=== PATIENT | male | born 1940 | race Caucasian/White ===

== ENCOUNTER 2017-08-04 19:55 | Emergency (ER) | payer OTHER ==
[~2017-08-04] VITALS: Ht 167.6 cm; Wt 90.4 kg
[~2017-08-04 19:55] MED LIST: DICL75 PO; INDO50CA PO; PERC5TAB12 PO; WARF4 PO
[2017-08-04 20:15] VITALS: BP 126/91; PULSE 80; RESP 20; TEMP 98.5; O2SAT 94
[2017-08-04] MEDS ORDERED: ALLO300T2 PO (20:30)
[2017-08-04] MEDS ORDERED: WARF-60 PO (20:30)
--- NOTE | 2017-08-04 21:11 | PD ---
HPI Chief Complaint: Back/ Neck Pain or Injury Time Seen by Provider: 21:00 Travel History International Travel<30 days: No Contact w/Intl Traveler<30days: No Traveled to known affect area: No History of Present Illness HPI The patient is a 77-year-old male that complains of low back pain for about a week. It is getting worse and he came in today because it is hard for him to ambulate with his pain. He was seen by his primary care physician earlier this week for this. He does not have any weakness or numbness or radiation of pain down his legs. The pain is primarily on the right lumbar area. He denies any bladder or bowel dysfunction. PFSH Past Medical History Arthritis: Yes (L FOOT) Blood Disorders: No Anxiety: No Depression: No Cancer: No Cardiovascular Problems: No High Cholesterol: Yes Diminished Hearing: No Diverticulitis: Yes Deep Vein Thrombosis: Yes (2010 RIGHT LEG) Endocrine: No Gastrointestinal Disorders: Yes (DIVERTICULOSIS) Gout: Yes Genitourinary: No Immune Disorder: No Implanted Vascular Access Dvce: Yes (VENA CAVA FILTER 03/28/11) Musculoskeletal: Yes Neurologic: No Psychiatric: No Reproductive: No Respiratory: No Tetanus Vaccination: > 5 Years Influenza Vaccination: Yes Past Surgical History Abdominal Surgery: Yes (CHOLECYSTECTOMY, REMOVAL OF 10" SMALL INTESTINES DUE TO DIVERTICULITIS) Cholecystectomy: Yes Eye Surgery: Yes (MARCELLO CATARACT) Genitourinary Surgery: Yes Tonsillectomy: Yes Other Surgery: Yes Social History Alcohol Use: Yes (ONCE OR TWICE A WEEK) Tobacco Use: Yes (1 TO 2 CIGARS A DAY) Substance Use: No Allergies-Medications (Allergen,Severity, Reaction): Coded Allergies: acetaminophen (Unverified Allergy, Intermediate, SERIOUS SHAKING, 06/03/17) hydrocodone (Unverified Allergy, Intermediate, SERIOUS SHAKING, 06/03/17) levofloxacin (Unverified Allergy, Intermediate, Blurred Vision- CIPRO OK. PER DR. DANIELLE, 06/03/17) Reported Meds & Prescriptions Reported Meds & Active Scripts Active Reported Warfarin 6 Mg Tab 6 Mg PO DAILY Allopurinol 300 Mg Tab 300 Mg PO DAILY Review of Systems Except as stated in HPI: all other systems reviewed are Neg Physical Exam Narrative GENERAL: The patient is alert, oriented 3 in moderate apparent distress with his back pain. His vital signs are normal except for blood pressure 126/91. SKIN: Focused skin assessment warm/dry. HEAD: Atraumatic. Normocephalic. EYES: Pupils equal and round. No scleral icterus. No injection or drainage. ENT: No nasal bleeding or discharge. Mucous membranes pink and moist. NECK: Trachea midline. No JVD. CARDIOVASCULAR: Regular rate and rhythm. No murmur appreciated. RESPIRATORY: No accessory muscle use. Clear to auscultation. Breath sounds equal bilaterally. GASTROINTESTINAL: Abdomen soft, non-tender, nondistended. Hepatic and splenic margins not palpable. MUSCULOSKELETAL: No obvious deformities. No clubbing. No cyanosis. No edema. I can completely reproduce the patient's pain by pressing on the musculature to the right of the lumbar spine at levels L 3, 4, 5. Straight leg raising is normal, deep tendon reflexes are +2 bilaterally on the patella and +1 bilaterally on the Achilles. Pinprick is normal. NEUROLOGICAL: Awake and alert. No obvious cranial nerve deficits. Motor grossly within normal limits. Normal speech. PSYCHIATRIC: Appropriate mood and affect; insight and judgment normal. Data Data Last Documented VS Vital Signs Date Time Temp Pulse Resp B/P (MAP) Pulse Ox O2 Delivery O2 Flow Rate FiO2 08/04/17 21:56 79 16 119/87 (98) 95 Room Air 08/04/17 20:[address] Lumb Spine W/O Contrast (08/04/17 21:06) Ketorolac Inj (Toradol Inj) (08/04/17 21:15) Orphenadrine Inj (Norflex Inj) (08/04/17 21:15) MDM Medical Decision Making Medical Screen Exam Complete: Yes Emergency Medical Condition: Yes Medical Record Reviewed: Yes Interpretation(s) The CT of the lumbar spine shows arthritic changes at L4-5 and L5-S1, most prominent at L5-S1 on the right. The radiologist makes the no that loss of fat planes on the right at L5-S1 could represent an occult disc protrusion. Differential Diagnosis Acute lumbar strain, HNP, lumbar radiculopathy, arthritis Narrative Course The patient appears to have arthritis of the lower lumbar spine. There is no fracture no definite disc protrusion and certainly no reason at this time for surgery. Plan: The patient will be given a prescription for Percocet, Flexeril. He is on Coumadin and cannot take nonsteroidals. Diagnosis Primary Impression: Acute lumbar myofascial strain Med/Other Pt SpecificInfo: Prescription(s) given Scripts Oxycodone-Acetaminophen (Percocet) 5-325 mg Tab 1 TAB PO Q6H Y for PAIN, #30 TAB 0 Refills Prov: Reji Mohamud MD 08/04/17 Cyclobenzaprine (Flexeril) 10 Mg Tab 10 MG PO TID for Muscle Spasm, #60 TAB 0 Refills Prov: Reji Mohamud MD 08/04/17 Disposition: 01 DISCHARGE HOME Condition: Stable Reji Mohamud MD Aug 04, 2017 21:11
[2017-08-04] MEDS ORDERED: ORPHENADRINE INJ 60 MG/2 ML AMP IM ONE (21:15)
[2017-08-04] MEDS ORDERED: KETOROLAC TROMETHAMINE 60 MG/2 ML (IM) VIAL IM ONE (21:15)
[2017-08-04 21:56] VITALS: BP 119/87; PULSE 79; RESP 16; O2SAT 95
--- NOTE | 2017-08-04 21:56 | RADRPT ---
EXAM DATE/TIME: 08/04/2017 21:25 [facility] COMPARISON: No previous studies available for comparison. INDICATIONS : Right lower back pain. RADIATION DOSE: 24.57 CTDIvol (mGy) MEDICAL HISTORY : Diverticulitis. Deep venous thrombosis. SURGICAL HISTORY : Cholecystectomy. Colon resection.[place] filter. ENCOUNTER: Initial ACUITY: 1 week PAIN SCALE: 10/10 LOCATION: Right lower back TECHNIQUE: Volumetric scanning of the lumbar spine was performed. Multiplanar reconstructions in the sagittal, coronal and oblique axial planes were performed. Using automated exposure control and adjustment of the mA and/or kV according to patient size, radiation dose was kept as low as reasonably achievable t o obtain optimal diagnostic quality images. DICOM format image data is available electronically for review and comparison. FINDINGS: VERTEBRAE: Normal vertebral body height. ALIGNMENT: No evidence of subluxation. T12-L1: The thecal sac has a normal diameter. No evidence of disc bulge or protrusion. The neural foramina are patent bilaterally. L1-L2: The thecal sac has a normal diameter. No evidence of disc bulge or protrusion. The neural foramina are patent bilaterally. Minimal anterior marginal spurring L2-L3: The thecal sac has a normal diameter. No evidence of disc bulge or protrusion. The neural foramina are patent bilaterally. Minimal anterior marginal spurring L3-L4: The thecal sac has a normal diameter. No evidence of disc bulge or protrusion. The neural foramina are patent bilaterally. Minimal anterior marginal fraying spurri L4-L5: The thecal sac is normal diameter with no evidence of disc bulge or protrusion and neural foramina ar e bilaterally patent. Mild facet arthritic change L5-S1: The thecal sac has a normal diameter. No evidence of disc bulge or protrusion. There is bilateral fa cet arthritic change most prominent on the right. There is loss of fat planes in the right neuroforam maura which could potentially be secondary to lateral disc although this is not well-defined on this st udy. CONCLUSION: Facet arthritic changes at L4-5 and L5-S1 most prominent at L5-S1 on the right. Loss of fat planes in the right L5-S1 neural foramin a nonspecific could represent an occult disc protrusion. Henry Cardona MD on August 04, 2017 at 21:49 Board Certified Radiologist. This report was verified electronically.
[2017-08-04] MEDS ORDERED: CYCL1TAB29 PO (22:20)
[2017-08-04] MEDS ORDERED: PERC5TAB12 PO (22:20)
== END 2017-08-04 22:56 | disposition home or self-care (01) ==
LOC: PHED 19:55
DX: S39.012A Strain of muscle, fascia and tendon of lower back, initial encounter (principal); X58.XXXA Exposure to other specified factors, initial encounter
CPT/HCPCS: 72131; 96372; 99285; J1885; J2360

== ENCOUNTER 2018-06-26 20:29 | Inpatient (IN) ==
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
[2018-06-26 21:01] LABS: Baso # (Auto) 0.1 th/mm3 (0.0-0.2); Baso % (Auto) 1.1 % (0.0-2.0); Eos # (Auto) 1.4 th/mm3 (0.0-0.4); Eos % (Auto) 11.1 % (0.0-4.0); Hematocrit 48.5 % (39.0-51.0); Hemoglobin 16.4 gm/dL (13.0-17.0); Lymph # (Auto) 2.9 th/mm3 (1.0-4.8); Lymph % (Auto) 23.1 % (9.0-44.0); Mean Corpuscular HGB Conc 33.9 % (32.0-36.0); Mean Corpuscular Hemoglobin 32.2 pg (27.0-34.0); Mean Corpuscular Volume 94.9 fL (80.0-100.0); Mean Platelet Volume 9.4 fL (7.0-11.0); Mono # (Auto) 0.9 th/mm3 (0.0-0.9); Mono % (Auto) 7.6 % (0.0-8.0); Neut # (Auto) 7.2 th/mm3 (1.8-7.7); Neut % (Auto) 57.1 % (16.0-70.0); Platelet Count 311 th/mm3 (150-450); Red Blood Count 5.11 mil/mm3 (4.50-5.90); Red Cell Distribution Width 13.5 % (11.6-17.2); White Blood Count 12.5 th/mm3 (4.0-11.0)
[2018-06-26 21:08] LABS: Potassium 3.8 meq/L (3.5-5.1)
[2018-06-26 21:11] LABS: Calcium 9.1 mg/dL (8.5-10.1)
[2018-06-26 21:12] LABS: Carbon Dioxide 25.4 meq/L (21.0-32.0)
[2018-06-26 21:13] LABS: INR 1.2 Ratio; Prothrombin Time 12.1 sec (9.8-11.6)
--- NOTE | 2018-06-26 21:20 | XR ---
EXAM DATE: 06/26/2018 9:11 PM EDT AGE/SEX: 78 years / Male INDICATIONS: Trauma to chest post fall today CLINICAL DATA: This is the patient's initial encounter. Patient reports that signs and symptoms have been present for 1 day and indicates a pain score of 0/10. MEDICAL/SURGICAL HISTORY: None. None. COMPARISON: [facility], CHEST SINGLE AP, 12/12/2010. . FINDINGS: A single AP view of the chest demonstrates the lungs to be symmetrically aerated without evidence of mass, infiltrate or effusion. Mild cardiomegaly is noted. Osseous structures are intact. CONCLUSION: 1. Mild cardiomegaly. 2. No focal infiltrate or pulmonary vascular congestion. Electronically signed by: Johnnie Arnold MD 06/26/2018 9:19 PM EDT
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
--- NOTE | 2018-06-26 22:36 | CT ---
EXAM DATE: 06/26/2018 10:25 PM EDT AGE/SEX: 78 years / Male INDICATIONS: Trauma. Lost consciousness and fell backwards. CLINICAL DATA: This is the patient's initial encounter. Patient reports that signs and symptoms have been present for 1 day and indicates a pain score of 4/10. MEDICAL/SURGICAL HISTORY: . Deep vein thrombosis. Diverticulitis. Hypertension. . Partial colon re section. Phacoemulsification of cataract of both eyes. Superior vena cava filter replacement. RADIATION DOSE: 54.84 CTDI (mGy) COMPARISON: No prior exams available for comparison. TECHNIQUE: CT of the head without contrast. Using automated exposure control and adjustment of the mA and/or kV according to patient size, radiation dose was kept as low as reasonably achievable to ob tain optimal diagnostic quality images. DICOM format image data is available electronically for revi ew and comparison. FINDINGS: Cerebrum: The ventricles are normal for age. No evidence of midline shift, mass lesion, hemorrhage or acute infarction. No extraaxial fluid collections are seen. Posterior Fossa: The cerebellum and brainstem are intact. The 4th ventricle is midline. The cerebe llopontine angle is unremarkable. Extracranial: The visualized portion of the orbits is intact. Skull: The calvaria is intact. No evidence of skull fracture. CONCLUSION: 1. Negative CT Head non contrast. . Electronically signed by: Johnnie Arnold MD 06/26/2018 10:34 PM EDT
[2018-06-26] MEDS ORDERED: Bisacodyl 10 MG Supp RECTAL PRN (23:00)
[2018-06-26] MEDS: Morphine Inj 4 MG/ML Vial IV.PUSH PRN (23:14)
[2018-06-26] MEDS: Sod Chloride 0.9% Inj 1,000 ML IV.CONT SCH (23:14)
[2018-06-26 23:36] LABS: Bilirubin,Urine Negative (Negative); Clarity,Urine Clear (Clear); Color,Urine Yellow (Yellw/Straw); Glucose,Urine (UA) Negative (Negative); Leukocyte Esterase,Urine Negative (Negative); Nitrite,Urine Negative (Negative); PH,Urine 5.5 (5.0-8.5); Specific Gravity,Urine Less/Equal 1.005 (1.002-1.035); Urobilinogen,Urine 0.2 mg/dL (Less than 2)
[2018-06-26 23:54] LABS: WBC,Urine 0-5 /hpf (0-5)
[2018-06-26 23:55] LABS: Amorphous Sediment,Urine Few /hpf; Hyaline Casts,Urine 0-3 /lpf (0-3); Mucus,Urine Few /lpf (Occasional); Squamous Epithelial Cell,Urine 0-5 /hpf (0-5)
[2018-06-27] MEDS: Morphine Inj 4 MG/ML Vial IV.PUSH PRN ×4 (03:02→13:36)
--- NOTE | 2018-06-27 06:12 | P.HPIM ---
History of Present Illness Service: [facility] hospitalists . Primary Care Physician: Toribio Farias MD Chief Complaint: Syncope, collapse, right ankle pain History of Present Illness: Mr. Rodriguez is a pleasant 78-year-old male with a history of recently diagnosed hypertension, right lower extremity DVT, diverticulitis with subsequent bowel perforation requiring hemicolectomy, and hyperlipidemia who presented to the emergency room in [place] on 06/26/2018 following a syncopal episode resulting in collapse with ankle pain. X-rays of the ankle showed distal fibula and tibia fractures. The patient was also placed on cardiac telemetry and atrial flutter was discovered in this patient without any history of cardiac arrhythmias. The patient was transferred to [facility] under the hospitalist service for further evaluation and management. The patient is seen in his hospital room. He reports having been started on antihypertensive medicine by an PSYCHOTHERAPIST COUNSELOR at Dr. Farias's office for elevated blood pressure. The medication is a combination of amlodipine and benazepril. The patient has taken this medication for the past 3 days. He reports his blood pressure was improving. Then, last night, he got up from bed to take his Coumadin. He was standing at a dresser with his feet underneath an opening under the dresser when he collapsed backwards hitting his head on the ground. The last thing he remembers is standing at the dresser trying to take his Coumadin. He denies any symptoms prior to the syncopal episode: Denies chest pain, shortness of breath, palpitations, blurry vision, unilateral weakness, or headache. He indicates that his right foot got caught under the opening of the dresser and remained in place while he fell backwards. He suffered from severe right ankle pain when he awakened from fall. He reports the pain has not been relieved with morphine 2 mg IV here at the hospital and is complaining of 10 out of 10 pain at the time of my visit. He denies any prior history of cardiac problems and states he has never been told he has a cardiac arrhythmia. 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 Inpatient Certification: I certify that the inpatient services were ordered in accordance with Medicare regulations governing the order. This includes certification that hospital inpatient services are reasonable and necessary and in the case of services not specified as inpatient-only under 42 CFR 419.22(n), that they are appropriately provided as inpatient services in accordance to with the 2-midnight benchmark under 43 CFR 412.3(e) Estimated Total Length of Stay (Days): 2 Plans for Post Hospital Care: Not yet determined Review of Systems All other systems reviewed negative except as stated in HPI [facility] - History History Provided By: Patient - Medical History Medical History: Medical History (Last Updated 06/27/18 @ 05:52 by JERRICA Myles) History of deep vein thrombosis (DVT) of lower extremity Onset Date: ~2009 History of diverticulitis History of hypertension Onset Date: ~2017 - Surgical History Surgical History: Surgical History (Last Updated 06/27/18 @ 05:53 by JERRICA Myles) History of ankle surgery History of partial surgical removal of colon Onset Date: ~2009 History of phacoemulsification of cataract of both eyes with intraocular lens implantation History of superior vena cava filter placement Onset Date: ~2009 - Family History Family History: Family History (Last Updated 06/27/18 @ 05:54 by JERRICA Myles) Father Myocardial infarction Other No family history of cerebrovascular accident (CVA) No family history of epilepsy - Tobacco History Second Hand Smoke Exposure: Yes Tobacco Use In Past 30 Days: Yes Smoking Status: Current every day smoker Tobacco Type: Cigars - Alcohol History How Often Do You Have a Drink Containing Alcohol: 2 to 3 times a week - Substance Use History Substance History: No History of Abuse - Travel History Recent Travel in the [place] Within the Last 8 Weeks: No Recent Travel Out of the Country Within the Last 8 Weeks: No - Immunization History Tetanus Immunization: <5 Years Hx Influenza Vaccine This Season: No Medications and Allergies Active Medications: Active Medications Al Hydroxide/Mg Hydroxide (Milk Of Magnesia Liq) 30 ml PO Q12H PRN PRN Reason: Mild Constipation Allopurinol (Zyloprim) 300 mg PO DAILY NANI Bisacodyl (Dulcolax Supp) 10 mg RECTAL DAILY PRN PRN Reason: SEVERE CONSITIPATION Sodium Chloride (Ns Inj) 1,000 mls @ 100 mls/hr IV.CONT .Q10H NANI Last Admin: 06/26/18 23:14 Dose: 100 mls/hr Lactulose (Lactulose Liq) 30 ml PO DAILY PRN PRN Reason: SEVERE CONSITIPATION Morphine Sulfate (Morphine Inj) 4 mg IV.PUSH Q4H PRN PRN Reason: PAIN 6-10 Last Admin: 06/27/18 05:44 Dose: 4 mg Non-Formulary Medication (Rosuvastatin [Rosuvastatin]) 40 mg PO DAILY [facility] Ondansetron HCl (Zofran Inj) 4 mg IV.PUSH Q6H PRN PRN Reason: NAUSEA OR VOMITING Senna/Docusate Sodium (Ekta-Colace) 1 tab PO BID [facility] Sennosides (Senokot) 17.2 mg PO Q12H PRN PRN Reason: Moderate Constipation Allergies Allergy/AdvReac Type Severity Reaction Status Date / Time acetaminophen Allergy Intermediate SERIOUS Verified 06/26/18 20:56 SHAKING hydrocodone Allergy Intermediate SERIOUS Verified 06/26/18 20:56 SHAKING levofloxacin Allergy Intermediate Blurred Verified 06/26/18 20:56 Vision- CIPRO OK. PER DR. DANIELLE MRI Precautions AdvReac Altered Uncoded 06/26/18 21:02 Sense of Taste Home Medications Medication Instructions Recorded Confirmed Type allopurinol 300 mg PO DAILY 06/26/18 06/26/18 History amlodipine-benazepril 1 cap PO DAILY 06/26/18 06/26/18 History rosuvastatin 40 mg PO DAILY 06/26/18 06/26/18 History warfarin 8 mg PO DAILY 06/26/18 06/26/18 History Exam Vital signs: Vital Signs 06/26/18 20:56 06/26/18 22:31 06/26/18 23:20 Temperature 98.3 F Pulse Rate 73 66 Respiratory Rate 20 17 16 Blood Pressure 164/94 H 151/73 H Pulse Oximetry 97 97 06/26/18 23:21 06/27/18 01:31 06/27/18 02:35 Temperature 98.7 F Pulse Rate 70 70 Respiratory Rate 16 16 Blood Pressure 133/73 Pulse Oximetry 95 06/27/18 04:00 Temperature 98.3 F Pulse Rate 77 Respiratory Rate 18 Blood Pressure 128/59 L Pulse Oximetry 97 Intake & Output 06/26/18 06/26/18 06/27/18 06:59 18:59 06:59 Output Total 350 / 350 Balance -350 / -350 Weight 90.718 kg Output: Urine 350 / 350 Other: Date of Last Bowel Movement 06/26/18 Narrative: GENERAL: This is a pleasant, elderly male patient, complaining of severe right ankle pain. SKIN: No rashes. Cool and dry. HEAD: Atraumatic. Normocephalic. EYES: No scleral icterus. No injection or drainage. ENT: Nose without bleeding, purulent drainage. NECK: Trachea midline. No JVD. No carotid bruits. CARDIOVASCULAR: Regular rate and rhythm without murmurs, gallops, or rubs. RESPIRATORY: Breath sounds with diminished air exchange, but equal bilaterally. No wheezes, rales, or rhonchi. GASTROINTESTINAL: Abdomen soft, non-tender, nondistended. No guarding. MUSCULOSKELETAL: Extremities without clubbing, cyanosis. No calf tenderness. Right toes are warm with intact movement, sensation, good capillary refill. NEUROLOGICAL: Awake and alert. Motor and sensory grossly within normal limits. Normal speech. . Results - Labs CBC & Chem 7: 06/26/18 20:52 06/26/18 20:52 Labs: Short CBC 06/26/18 Range/Units 20:52 WBC 12.5 H (4.0-11.0) th/mm3 Hgb 16.4 (13.0-17.0) gm/dL Hct 48.5 (39.0-51.0) % Plt Count 311 (150-450) th/mm3 BMP 06/26/18 20:52 Sodium 137 Potassium 3.8 Chloride 102 Carbon Dioxide 25.4 BUN 22 H Creatinine 2.20 H Calcium 9.1 Urine 06/26/18 Range/Units 23:34 Urine Color Yellow (Yellw/Straw) Urine Clarity Clear (Clear) Urine pH 5.5 (5.0-8.5) Ur Specific [place] Less/equal 1.005 (1.002-1.035) Urine Protein 30 H (Neg-Trace) mg/dL Urine Glucose (UA) Negative (Negative) mg/dL - Imaging Impressions Ankle X-Ray 06/26/18 20:43 CONCLUSION: Acute mildly displaced fractures involving the distal fibula and posterior malleolus of the distal tibia. Chest X-Ray 06/26/18 20:43 CONCLUSION: 1. Mild cardiomegaly. 2. No focal infiltrate or pulmonary vascular congestion. Head CT 06/26/18 20:44 CONCLUSION: 1. Negative CT Head non contrast. . Caprini VTE Risk Assessment Caprini VTE Risk Assessment: Moderate/High Risk (score >= 2) Caprini Risk Assessment Model: Point Value = 1 Point Value = 2 Point Value = 3 Point Value = 5 Age 41-60 Minor surgery BMI > 25 kg/m2 Swollen legs Varicose veins or History of unexplained or recurrent spontaneous Oral contraceptives or hormone replacement Sepsis (< 1 month) Serious lung disease, including pneumonia (< 1 month) Abnormal pulmonary function Acute myocardial infarction Congestive heart failure (< 1 month) History of inflammatory bowel disease Medical patient at bed rest Age 61-74 Arthroscopic surgery Major open surgery (> 45 min) Laparoscopic surgery (> 45 min) Malignancy Confined to bed (> 72 hours) Immobilizing plaster cast Central venous access Age >= 75 History of VTE Family history of VTE Factor V Leiden Prothrombin [id number] Lupus anticoagulant Anticardiolipin antibodies Elevated serum homocysteine Heparin-induced thrombocytopenia Other congenital or acquired thrombophilia Stroke (< 1 month) Elective arthroplasty Hip, pelvis, or leg fracture Acute spinal cord injury (< 1 month) Prophylaxis Regimen: Total Risk Factor Score Risk Level Prophylaxis Regimen 0-1 Low Early ambulation 2 Moderate Order ONE of the following: *Sequential Compression Device (SCD) *Heparin 5000 units SQ BID 3-4 Higher Order ONE of the following medications: *Heparin 5000 units SQ TID *Enoxaparin/Lovenox 40 mg SQ daily (WT < 150 kg, CrCl > 30 mL/min) *Enoxaparin/Lovenox 30 mg SQ daily (WT < 150 kg, CrCl > 10-29 mL/min) *Enoxaparin/Lovenox 30 mg SQ BID (WT < 150 kg, CrCl > 30 mL/min) AND/OR *Sequential Compression Device (SCD) 5 or more Highest Order ONE of the following medications: *Heparin 5000 units SQ TID (Preferred with Epidurals) *Enoxaparin/Lovenox 40 mg SQ daily (WT < 150 kg, CrCl > 30 mL/min) *Enoxaparin/Lovenox 30 mg SQ daily (WT < 150 kg, CrCl > 10-29 mL/min) *Enoxaparin/Lovenox 30 mg SQ BID (WT < 150 kg, CrCl > 30 mL/min) AND *Sequential Compression Device (SCD) Assessment and Plan - Plan Mr. Rodriguez is a pleasant 78-year-old male with a history of recently diagnosed hypertension, right lower extremity DVT, diverticulitis with subsequent bowel perforation requiring hemicolectomy, and hyperlipidemia who presented to the emergency room in [place] on 06/26/2018 following a syncopal episode resulting in collapse with ankle pain. X-rays of the ankle showed distal fibula and tibia fractures. The patient was also placed on cardiac telemetry and atrial flutter was discovered in this patient without any history of cardiac arrhythmias. The patient was transferred to [facility] under the hospitalist service for further evaluation and management. Distal fibula and tibia fractures, right ankle -Consult orthopedic surgeon-appreciate assistance -N.p.o. -We will increase morphine to 4 mg IV every 4 hours as needed for now Syncope -Suspect this was related to orthostatic hypotension as patient was just started on blood pressure medication earlier in the week and had been taking it for 3 days prior to syncope - patient also had a blood alcohol level of 78 which likely contributed -Hold blood pressure medication and monitor blood pressure readings -Unable to check orthostatics at this time given patient's severe right ankle pain -Check echocardiogram for cardiac structure and function New-onset atrial flutter -Continuous cardiac telemetry to monitor for further arrhythmia/monitor rate -Consult cardiology - appreciate assistance -anticoagulation to be resumed (takes for DVT) when okay with orthopedic surgeon Acute on chronic renal failure -BUN 22, creatinine 2.20, EGFR 29 -renal function worsened compared to prior labs -IV fluid hydration with normal saline at 100 cc/h -Repeat labs and follow trends and renal indices -Avoid nephrotoxins Regarding alcohol use -patient reports drinking 1 drink per day and up to 3 if he and his go out -Patient denies any history of alcohol withdrawal -Will add alcohol withdrawal assessment to orders without CIWA medications for now DVT prophylaxis -SVC filter -Continue anticoagulation when cleared by orthopedic surgery Discussed Condition With: Dr. Eaton, patient, and RN H&P: Quality - VTE Deep Vein Thrombosis/Pulmonary Embolism Present on Admission: No
[2018-06-27] MEDS: Senna/Docusate Sodium 8.6/50 MG Tablet PO SCH ×2 (09:31→22:32)
[2018-06-27] MEDS: Allopurinol 300 MG Tablet PO SCH (09:31)
[2018-06-27] MEDS: Sod Chloride 0.9% Inj 1,000 ML IV.CONT SCH ×2 (09:54→22:43)
[2018-06-27] MEDS ORDERED: Naloxone Inj 0.4 MG/ML Vial IV.PUSH PRN (09:57)
[2018-06-27 10:08] LABS: INR 1.2 Ratio; Prothrombin Time 12.1 sec (9.8-11.6)
--- NOTE | 2018-06-27 10:32 | P.CONCA ---
History of Present Illness Consult date: 06/27/18 Primary Care Provider: Toribio Farias MD Family Provider: Toribio Farias MD Chief Complaint: Syncope, collapse, right ankle pain History of Present Illness: Pleasant 78 year old male with a PMH of recently diagnosed HTN, hx of RLE DVT, diverticulitis who was recently started on amlodopine and benazepril for HTN who presented on 06/26 with a syncopal episode resulting in a fall and distal fibula and tibia fractures. The patient endorses ETOH use preceding his syncopal episode. He states feeling lightheaded and dizzy prior to falling. No CP/palpations preceding this episode. No family history of SCD. The patient was placed on cardiac telemetry and it showed atrial flutter without RVR. The patient is currently awaiting surgery. He is on Coumadin for DVT porphylaxis and tolerating it well without any issues. He currently denies any CP/SOB. No prior history of stroke, DM2, CHF, CAD, or atrial arrhythmia. Review of Systems All other systems reviewed negative except as stated in HPI [facility] - History History Provided By: Patient - Medical History Medical History: Medical History (Last Reviewed 06/29/18 @ 08:02 by Drea Horowitz) History of deep vein thrombosis (DVT) of lower extremity Onset Date: ~2009 History of diverticulitis History of hypertension Onset Date: ~2017 - Surgical History Surgical History: Surgical History (Last Reviewed 06/28/18 @ 13:34 by Erika Dobbins) History of ankle surgery History of partial surgical removal of colon Onset Date: ~2009 History of phacoemulsification of cataract of both eyes with intraocular lens implantation History of superior vena cava filter placement Onset Date: ~2009 - Family History Family History: Family History (Last Reviewed 06/29/18 @ 08:02 by Drea Horowitz) Father Myocardial infarction Other No family history of cerebrovascular accident (CVA) No family history of epilepsy - Tobacco History Second Hand Smoke Exposure: Yes Tobacco Use In Past 30 Days: Yes Smoking Status: Current every day smoker Tobacco Type: Cigars - Alcohol History How Often Do You Have a Drink Containing Alcohol: 2 to 3 times a week - Substance Use History Substance History: No History of Abuse - Travel History Recent Travel in the [facility] Within the Last 8 Weeks: No Recent Travel Out of the Country Within the Last 8 Weeks: No - Immunization History Tetanus Immunization: <5 Years Hx Influenza Vaccine This Season: No Medications and Allergies Active Medications: Active Medications Albuterol (Duoneb Neb (Prn)) 1 ampul NEB Q2HR NEB PRN PRN Reason: SHORTNESS OF BREATH/WHEEZING Allopurinol (Zyloprim) 300 mg PO DAILY [facility] Last Admin: 06/27/18 09:31 Dose: 300 mg Atorvastatin Calcium (Lipitor) 80 mg PO DAILY [facility] Last Admin: 06/27/18 09:31 Dose: 80 mg Bisacodyl (Dulcolax Supp) 10 mg RECTAL DAILY PRN PRN Reason: SEVERE CONSITIPATION Sodium Chloride (Ns Inj) 1,000 mls @ 100 mls/hr IV.CONT .Q10H [facility] Last Admin: 06/27/18 09:54 Dose: 100 mls/hr Lactulose (Lactulose Liq) 30 ml PO DAILY PRN PRN Reason: SEVERE CONSITIPATION Morphine Sulfate (Morphine Inj) 4 mg IV.PUSH Q4H PRN PRN Reason: PAIN 6-10 Last Admin: 06/27/18 09:31 Dose: 4 mg Naloxone HCl (Narcan Inj) 0.4 mg IV.PUSH UNSCH PRN PRN Reason: SEE LABEL COMMENTS Ondansetron HCl (Zofran Inj) 4 mg IV.PUSH Q6H PRN PRN Reason: NAUSEA OR VOMITING Senna/Docusate Sodium (Ekta-Colace) 1 tab PO BID [facility] Last Admin: 06/27/18 09:31 Dose: 1 tab Sennosides (Senokot) 17.2 mg PO Q12H PRN PRN Reason: Moderate Constipation Allergies Allergy/AdvReac Type Severity Reaction Status Date / Time levofloxacin Allergy Intermediate Blurred Verified 06/26/18 20:56 Vision- CIPRO OK. PER DR. DANIELLE MRI Precautions AdvReac Altered Uncoded 06/26/18 21:02 Sense of Taste Home Medications Medication Instructions Recorded Confirmed Type allopurinol 300 mg PO DAILY 06/26/18 06/26/18 History rosuvastatin 40 mg PO DAILY 06/26/18 06/26/18 History warfarin 8 mg PO DAILY 06/26/18 06/26/18 History Exam Vital signs: Vital Signs 06/26/18 20:56 06/26/18 22:31 06/26/18 23:20 Temperature 98.3 F Pulse Rate 73 66 Respiratory Rate 20 17 16 Blood Pressure 164/94 H 151/73 H Pulse Oximetry 97 97 06/26/18 23:21 06/27/18 01:31 06/27/18 02:35 Temperature 98.7 F Pulse Rate 70 70 Respiratory Rate 16 16 Blood Pressure 133/73 Pulse Oximetry 95 06/27/18 04:00 06/27/18 08:00 06/27/18 09:33 Temperature 98.3 F 97.9 F Pulse Rate 77 76 Respiratory Rate 18 18 18 Blood Pressure 128/59 L 134/55 L Pulse Oximetry 97 92 L Intake & Output 06/26/18 06/27/18 06/27/18 18:59 06:59 18:59 Intake Total 1000 / 1000 Output Total 650 / 650 Balance -650 / -650 1000 / 1000 Weight 90.718 kg Intake: IV 1000 / 1000 NS Inj 1,000 ML @ 100 mls/hr IV 1000 / 1000 .CONT .Q10H NANI Rx#:[id number] Output: Urine 650 / 650 Other: # Voids 1 Date of Last Bowel Movement 06/26/18 - Constitutional no acute distress - Routine HEENT Exam Head: Present: normocephalic Eye: Present: EOMI ENT: Present: mucous membranes moist - Routine Neck Exam Present: supple - Routine Chest/Breast/Axilla Exam Chest wall: Absent: tenderness - Routine Respiratory Exam Present: CTA bilaterally - Routine Cardiovascular Exam Present: S1, S2, irregular rhythm - Routine Abdominal Exam Present: soft, normoactive bowel sounds - Routine Extremities Exam Absent: edema - Routine Skin Exam Present: intact - Routine Neurological Exam Present: alert, oriented X3, CN II-XII intact - Routine Psychiatric Exam Present: normal affect Results 06/28/18 05:43 06/28/18 05:43 Coagulation 06/26/18 06/27/18 Range/Units 20:52 09:25 PT 12.1 H 12.1 H (9.8-11.6) sec CBC 06/26/18 Range/Units 20:52 WBC 12.5 H (4.0-11.0) th/mm3 RBC 5.11 (4.50-5.90) mil/mm3 Hgb 16.4 (13.0-17.0) gm/dL Hct 48.5 (39.0-51.0) % Plt Count 311 (150-450) th/mm3 Neut # (Auto) 7.2 (1.8-7.7) th/mm3 Lymph # (Auto) 2.9 (1.0-4.8) th/mm3 [place] # (Auto) 0.9 (0.0-0.9) th/mm3 Eos # (Auto) 1.4 H (0.0-0.4) th/mm3 Baso # (Auto) 0.1 (0.0-0.2) th/mm3 Comprehensive Metabolic Panel 06/26/18 Range/Units 20:52 Sodium 137 (136-145) meq/L Potassium 3.8 (3.5-5.1) meq/L Chloride 102 (98-107) meq/L Carbon Dioxide 25.4 (21.0-32.0) meq/L BUN 22 H (7-18) mg/dL Creatinine 2.20 H (0.60-1.30) mg/dL Calcium 9.1 (8.5-10.1) mg/dL Intake and Output 06/26/18 06/27/18 06/27/18 22:59 06:59 14:59 Intake Total 1000 / 1000 Output Total 650 / 650 Balance -650 / -650 1000 / 1000 Intake: IV 1000 / 1000 NS Inj 1,000 ML @ 100 mls/hr IV 1000 / 1000 .CONT .Q10H NANI Rx#:[id number] Output: Urine 650 / 650 Other: # Voids 1 Date of Last Bowel Movement 06/26/18 Weight 90.718 kg Assessment and Plan - Plan New onset Aflutter, no RVR Syncope-likely vasovagal. Continue to monitor. restart coumadin when appropriate from Orthopedics, would hold off on Flavio + cardioversion for now. Likely related to ETOH. TTE ordered.
[2018-06-27] MEDS ORDERED: Chlorhexidine Gluconate 2% 1 Pack (2 Cloths) TOPICAL ONE (10:45)
[2018-06-27] MEDS ORDERED: Sodium Chlor 0.9% Inj 500 ML IV.CONT ONE (10:45)
[2018-06-27] MEDS ORDERED: Metoprolol Tartrate 25 MG Tablet PO ONE (10:45)
--- NOTE | 2018-06-27 11:44 | P.PN ---
Subjective Interval history: F/U syncope. Patient has no complaints today. According to the , patient passed out for 5 minutes with upward rolling of eyeballs with extended upper extremities. No clonic activity Physical Exam Vital signs: Vital Signs 06/26/18 20:56 06/26/18 22:31 06/26/18 23:20 Temperature 98.3 F Pulse Rate 73 66 Respiratory Rate 20 17 16 Blood Pressure 164/94 H 151/73 H Pulse Oximetry 97 97 06/26/18 23:21 06/27/18 01:31 06/27/18 02:35 Temperature 98.7 F Pulse Rate 70 70 Respiratory Rate 16 16 Blood Pressure 133/73 Pulse Oximetry 95 06/27/18 04:00 06/27/18 08:00 06/27/18 09:33 Temperature 98.3 F 97.9 F Pulse Rate 77 76 Respiratory Rate 18 18 18 Blood Pressure 128/59 L 134/55 L Pulse Oximetry 97 92 L Intake & Output 06/26/18 06/27/18 06/27/18 18:59 06:59 18:59 Intake Total 1000 / 1000 Output Total 650 / 650 Balance -650 / -650 1000 / 1000 Weight 90.718 kg Intake: IV 1000 / 1000 NS Inj 1,000 ML @ 100 mls/hr IV 1000 / 1000 .CONT .Q10H [facility] Rx#:[id number] Output: Urine 650 / 650 Other: # Voids 1 Date of Last Bowel Movement 06/26/18 Narrative: GENERAL: This is a pleasant, elderly male patient, SKIN: No rashes. Cool and dry. CARDIOVASCULAR: Regular rate and rhythm without murmurs, gallops, or rubs. RESPIRATORY: Breath sounds with diminished air exchange, but equal bilaterally. No wheezes, rales, or rhonchi. GASTROINTESTINAL: Abdomen soft, non-tender, nondistended. No guarding. MUSCULOSKELETAL: Extremities without clubbing, cyanosis. No calf tenderness. Right lower extremity in a splint NEUROLOGICAL: Awake and alert. Motor and sensory grossly within normal limits. Normal speech. Results - Labs CBC & Chem 7: 06/27/18 13:22 06/26/18 20:52 Laboratory Results - last 24 hr 06/26/18 06/26/18 06/26/18 20:52 20:52 20:52 CBC w Diff Auto diff final WBC 12.5 H RBC 5.11 Hgb 16.4 Hct 48.5 MCV 94.9 MCH 32.2 MCHC 33.9 RDW 13.5 Plt Count 311 MPV 9.4 Neut % (Auto) 57.1 Lymph % (Auto) 23.1 [place] % (Auto) 7.6 Eos % (Auto) 11.1 H Baso % (Auto) 1.1 Neut # (Auto) 7.2 Lymph # (Auto) 2.9 [place] # (Auto) 0.9 Eos # (Auto) 1.4 H Baso # (Auto) 0.1 WBC Differential . Differential Comment . PT 12.1 H INR 1.2 Sodium 137 Potassium 3.8 Chloride 102 Carbon Dioxide 25.4 Anion Gap 10 BUN 22 H Creatinine 2.20 H Estimated GFR 29 L Random Glucose 128 H Calcium 9.1 Urine Color Urine Clarity Urine pH Ur Specific [place] Urine Protein Urine Glucose (UA) Urine Ketones Urine Occult Blood Urine Nitrate Urine Bilirubin Urine Urobilinogen Ur Leukocyte Esterase Urine WBC Ur Squamous Epith Cells Amorphous Sediment Hyaline Casts Urine Mucus Micro UA Comment Ur Microscopic Review Urine Culture Comments Serum Alcohol 06/26/18 06/26/18 06/27/18 20:52 23:34 09:25 CBC w Diff WBC RBC Hgb Hct MCV MCH MCHC RDW Plt Count MPV Neut % (Auto) Lymph % (Auto) [place] % (Auto) Eos % (Auto) Baso % (Auto) Neut # (Auto) Lymph # (Auto) [place] # (Auto) Eos # (Auto) Baso # (Auto) WBC Differential Differential Comment PT 12.1 H INR 1.2 Sodium Potassium Chloride Carbon Dioxide Anion Gap BUN Creatinine Estimated GFR Random Glucose Calcium Urine Color Yellow Urine Clarity Clear Urine pH 5.5 Ur Specific [place] Less/equal 1.005 Urine Protein 30 H Urine Glucose (UA) Negative Urine Ketones Negative Urine Occult Blood Small H Urine Nitrate Negative Urine Bilirubin Negative Urine Urobilinogen 0.2 Ur Leukocyte Esterase Negative Urine WBC 0-5 Ur Squamous Epith Cells 0-5 Amorphous Sediment Few H Hyaline Casts 0-3 Urine Mucus Few H Micro UA Comment Culture not ind Ur Microscopic Review Microscopic reviewed Urine Culture Comments Culture not ind Serum Alcohol 78 H - Imaging Impressions Ankle X-Ray 06/26/18 20:43 CONCLUSION: Acute mildly displaced fractures involving the distal fibula and posterior malleolus of the distal tibia. Chest X-Ray 06/26/18 20:43 CONCLUSION: 1. Mild cardiomegaly. 2. No focal infiltrate or pulmonary vascular congestion. Head CT 06/26/18 20:44 CONCLUSION: 1. Negative CT Head non contrast. . Assessment and Plan - Plan Mr. Rodriguez is a pleasant 78-year-old male with a history of recently diagnosed hypertension, right lower extremity DVT, diverticulitis with subsequent bowel perforation requiring hemicolectomy, and hyperlipidemia who presented to the emergency room in [place] on 06/26/2018 following a syncopal episode resulting in collapse with ankle pain. X-rays of the ankle showed distal fibula and tibia fractures. The patient was also placed on cardiac telemetry and atrial flutter was discovered in this patient without any history of cardiac arrhythmias. The patient was transferred to [facility] under the hospitalist service for further evaluation and management. Distal fibula and tibia fractures, right ankle -Consult orthopedic surgeon-appreciate assistance -N.p.o. -Continue morphine 4 mg IV every 4 hours as needed for now Syncope -Suspect this was related to orthostatic hypotension as patient was just started on blood pressure medication earlier in the week and had been taking it for 3 days prior to syncope - patient also had a blood alcohol level of 78 which likely contributed -Hold blood pressure medication and monitor blood pressure readings -Unable to check orthostatics at this time given patient's severe right ankle pain -Check echocardiogram for cardiac structure and function -Neurochecks and seizure precautions. Obtain EEG -Currently nonfocal New-onset atrial flutter -Continuous cardiac telemetry to monitor for further arrhythmia/monitor rate -Consult cardiology - appreciate assistance -anticoagulation to be resumed (takes for DVT) when okay with orthopedic surgeon Acute on chronic renal failure stage III -BUN 22, creatinine 2.20, EGFR 29 -renal function worsened compared to prior labs -IV fluid hydration with normal saline at 100 cc/h -Repeat labs and follow trends and renal indices -Avoid nephrotoxins Regarding alcohol use -patient reports drinking 1 drink per day and up to 3 if he and his go out -Patient denies any history of alcohol withdrawal -Will add alcohol withdrawal assessment to orders without CIWA medications for now DVT prophylaxis -SVC filter -Continue anticoagulation when cleared by orthopedic surgery Discharge Planning: Rehab vs [facility]
--- NOTE | 2018-06-27 12:16 | ECHRPT ---
Indication: CARDIOMYOPATHY CONCLUSIONS The left ventricular systolic function is normal with an estimated ejection fraction in the range of 60-65%. Normal left ventricular size. Wall thickness is measured at the upper limits of normal. No regional wall motion abnormalities are present. Trace mitral valve regurgitation. Aortic valve sclerosis is present. There is trace tricuspid valve regurgitation. The estimated pulmonary arterial pressure is 35 mmHg. BP: / HR: Rhythm: Sinus MEASUREMENTS (Male / Female) Normal Values Technical Quality:Poor 2D ECHO LV Diastolic Diameter PLAX 3.5 cm 4.2 - 5.9 / 3.9 - 5.3 cm LV Systolic Diameter PLAX 2.6 cm IVS Diastolic Thickness 1.2 cm 0.6 - 1.0 / 0.6 - 0.9 cm LVPW Diastolic Thickness 1.2 cm 0.6 - 1.0 / 0.6 - 0.9 cm LV Relative Wall Thickness 0.7 RV Internal Dim ED PLAX 2.8 cm LVOT Diameter 1.7 cm LA Systolic Diameter LX 3.4 cm 3.0 - 4.0 / 2.7 - 3.8 cm LV Ejection Fraction MOD 4C 60.5 % LV Ejection Fraction 4C AL 64.0 % M-MODE Aortic Root Diameter MM 2.5 cm LA Systolic Diameter MM 3.7 cm LA Ao Ratio MM 1.5 AV Cusp Separation MM 1.9 cm DOPPLER AV Peak Velocity 160.0 cm/s AV Peak Gradient 10.2 mmHg LVOT Peak Velocity 120.0 cm/s LVOT Peak Gradient 5.8 mmHg AV Area Cont Eq pk 1.7 cm MV Area PHT 5.0 cm Mitral E Point Velocity 134.0 cm/s Mitral A Point Velocity 49.9 cm/s Mitral E to A Ratio 2.7 LV E' Lateral Velocity 8.7 cm/s Mitral E to LV E' Lateral Ratio 15.4 TR Peak Velocity 250.0 cm/s TR Peak Gradient 25.0 mmHg Right Atrial Pressure 10.0 mmHg Pulmonary Artery Systolic Pressu 35.0 mmHg Right Ventricular Systolic Press 35.0 mmHg PV Peak Velocity 111.0 cm/s PV Peak Gradient 4.9 mmHg FINDINGS LEFT VENTRICLE The left ventricular systolic function is normal with an estimated ejection fraction in the range of 60-65%. Normal left ventricular size. Wall thickness is measured at the upper limits of normal. No regional wall motion abnormalities are present. RIGHT VENTRICLE Normal right ventricular size and systolic function. LEFT ATRIUM The left atrial size is normal. RIGHT ATRIUM The right atrial size is normal. ATRIAL SEPTUM Normal atrial septal thickness without atrial level shunting by limited color doppler interrogation. AORTA The aortic root and proximal ascending aorta are normal in size on limited imaging. MITRAL VALVE Structurally normal mitral valve. Trace mitral valve regurgitation. AORTIC VALVE Trileaflet aortic valve. Aortic valve sclerosis is present. TRICUSPID VALVE Structurally normal tricuspid valve. There is trace tricuspid valve regurgitation. The estimated pulmonary arterial pressure is 35 mmHg. PULMONARY VALVE No pulmonary valve regurgitation or stenosis. VESSELS The inferior vena cava is normal in size. PERICARDIUM No pericardial effusion. Javier Kimbrough MD (Electronically Signed) Final Date:27 June 2018 12:15
[2018-06-27 13:40] LABS: Baso # (Auto) 0.1 th/mm3 (0.0-0.2); Baso % (Auto) 0.7 % (0.0-2.0); Eos # (Auto) 1.3 th/mm3 (0.0-0.4); Eos % (Auto) 12.7 % (0.0-4.0); Hematocrit 42.8 % (39.0-51.0); Hemoglobin 14.8 gm/dL (13.0-17.0); Lymph # (Auto) 1.6 th/mm3 (1.0-4.8); Mean Corpuscular HGB Conc 34.6 % (32.0-36.0); Mean Corpuscular Hemoglobin 32.7 pg (27.0-34.0); Mean Corpuscular Volume 94.7 fL (80.0-100.0); Mean Platelet Volume 9.2 fL (7.0-11.0); Mono # (Auto) 0.9 th/mm3 (0.0-0.9); Mono % (Auto) 8.9 % (0.0-8.0); Neut # (Auto) 6.2 th/mm3 (1.8-7.7); Neut % (Auto) 61.7 % (16.0-70.0); Platelet Count 257 th/mm3 (150-450); Red Blood Count 4.52 mil/mm3 (4.50-5.90); Red Cell Distribution Width 14.3 % (11.6-17.2); White Blood Count 10.1 th/mm3 (4.0-11.0)
[2018-06-27 14:17] LABS: Alanine Aminotransferase 30 U/L (12-78); Albumin 3.5 g/dL (3.4-5.0); Anion Gap 7 meq/L (5-15); Aspartate Aminotransferase 31 U/L (15-37); Blood Urea Nitrogen 19 mg/dL (7-18); Calcium 8.4 mg/dL (8.5-10.1); Carbon Dioxide 24.8 meq/L (21.0-32.0); Chloride 110 meq/L (98-107); Glomerular Filtration Rate 42 mL/min (>89); Glucose,Random 85 mg/dL (74-106); Potassium 4.1 meq/L (3.5-5.1); Sodium 142 meq/L (136-145)
[2018-06-27 14:20] LABS: Alkaline Phosphatase 68 U/L (45-117); Total Protein 6.8 g/dL (6.4-8.2)
[2018-06-27 14:22] LABS: Creatine Kinase 83 U/L (39-308)
--- NOTE | 2018-06-27 15:05 | P.CONOP ---
[facility] Orthopedics Consult Note - [facility] Consult date: 06/27/18 Chief complaint: syncope, new onset atrial flutter, fx/disloc Right Narrative: Mr. Rodriguez is a pleasant 78-year-old male with a history of recently diagnosed hypertension, right lower extremity DVT, diverticulitis with subsequent bowel perforation requiring hemicolectomy, and hyperlipidemia who presented to the emergency room in [place] on 06/26/2018 following a syncopal episode resulting in collapse with ankle pain. X-rays of the ankle showed distal fibula and tibia fractures. The emergency room physician relates to me that he noticed deformity about the ankle and he went to lift the ankle and the ankle reduced back into position. He therefore splinted the ankle and took an x-ray in the splint. He did not take an x-ray prior to this. The patient was also placed on cardiac telemetry and atrial flutter was discovered in this patient without any history of cardiac arrhythmias. The patient was transferred to [facility] under the hospitalist service for further evaluation and management. The patient has been seen by hospital admitting clerk and has been cleared to move forward with surgical management. As far as the ankle is concerned he does describe some mild numbness about the toes. He describes some minor pain about the elbows but says that he feels like these are only contusions from the fall. He denies having problems with the ankle in the past. Ambulation in the ankle is very painful. He does regularly take Coumadin for history of DVT. However he has been off her Coumadin for a couple days. Review of Systems A 12 point review of systems was reviewed and is negative unless as specified in the history of present illness. [facility] - History History Provided By: Patient - Medical History Medical History: Medical History (Last Reviewed 06/27/18 @ 15:02 by Conrad Rios MD) History of deep vein thrombosis (DVT) of lower extremity Onset Date: ~2009 History of diverticulitis History of hypertension Onset Date: ~2017 - Surgical History Surgical History: Surgical History (Last Reviewed 06/27/18 @ 15:02 by Conrad Rios MD) History of ankle surgery History of partial surgical removal of colon Onset Date: ~2009 History of phacoemulsification of cataract of both eyes with intraocular lens implantation History of superior vena cava filter placement Onset Date: ~2009 - Family History Family History: Family History (Last Reviewed 06/27/18 @ 15:02 by Conrad Rios MD) Father Myocardial infarction Other No family history of cerebrovascular accident (CVA) No family history of epilepsy - Tobacco History Second Hand Smoke Exposure: Yes Tobacco Use In Past 30 Days: Yes Smoking Status: Current every day smoker Tobacco Type: Cigars - Alcohol History How Often Do You Have a Drink Containing Alcohol: 2 to 3 times a week - Substance Use History Substance History: No History of Abuse - Travel History Recent Travel in the [place] Within the Last 8 Weeks: No Recent Travel Out of the Country Within the Last 8 Weeks: No - Immunization History Tetanus Immunization: <5 Years Hx Influenza Vaccine This Season: No Medications and Allergies Active Medications: Active Medications Albuterol (Duoneb Neb (Prn)) 1 ampul NEB Q2HR NEB PRN PRN Reason: SHORTNESS OF BREATH/WHEEZING Allopurinol (Zyloprim) 300 mg PO DAILY [facility] Last Admin: 06/27/18 09:31 Dose: 300 mg Atorvastatin Calcium (Lipitor) 80 mg PO DAILY [facility] Last Admin: 06/27/18 09:31 Dose: 80 mg Bisacodyl (Dulcolax Supp) 10 mg RECTAL DAILY PRN PRN Reason: SEVERE CONSITIPATION Sodium Chloride (Ns Inj) 1,000 mls @ 100 mls/hr IV.CONT .Q10H [facility] Last Admin: 06/27/18 09:54 Dose: 100 mls/hr Lactated Ringer's (Lr 1000 Ml Inj) 1,000 mls @ 30 mls/hr IV.CONT .Q24H ONE Stop: 06/28/18 10:44 Sodium Chloride (Ns Inj) 500 mls @ 30 mls/hr IV.CONT .[id number] ONE Stop: 06/28/18 03:24 Lactulose (Lactulose Liq) 30 ml PO DAILY PRN PRN Reason: SEVERE CONSITIPATION Morphine Sulfate (Morphine Inj) 4 mg IV.PUSH Q4H PRN PRN Reason: PAIN 6-10 Last Admin: 06/27/18 13:36 Dose: 4 mg Naloxone HCl (Narcan Inj) 0.4 mg IV.PUSH UNSCH PRN PRN Reason: SEE LABEL COMMENTS Ondansetron HCl (Zofran Inj) 4 mg IV.PUSH Q6H PRN PRN Reason: NAUSEA OR VOMITING Senna/Docusate Sodium (Ekta-Colace) 1 tab PO BID [facility] Last Admin: 06/27/18 09:31 Dose: 1 tab Sennosides (Senokot) 17.2 mg PO Q12H PRN PRN Reason: Moderate Constipation Allergies Allergy/AdvReac Type Severity Reaction Status Date / Time acetaminophen Allergy Intermediate SERIOUS Verified 06/26/18 20:56 SHAKING hydrocodone Allergy Intermediate SERIOUS Verified 06/26/18 20:56 SHAKING levofloxacin Allergy Intermediate Blurred Verified 06/26/18 20:56 Vision- CIPRO OK. PER DR. DANIELLE MRI Precautions AdvReac Altered Uncoded 06/26/18 21:02 Sense of Taste Home Medications Medication Instructions Recorded Confirmed Type allopurinol 300 mg PO DAILY 06/26/18 06/26/18 History amlodipine-benazepril 1 cap PO DAILY 06/26/18 06/26/18 History rosuvastatin 40 mg PO DAILY 06/26/18 06/26/18 History warfarin 8 mg PO DAILY 06/26/18 06/26/18 History Exam Vital signs: Vital Signs 06/26/18 20:56 06/26/18 22:31 06/26/18 23:20 Temperature 98.3 F Pulse Rate 73 66 Respiratory Rate 20 17 16 Blood Pressure 164/94 H 151/73 H Pulse Oximetry 97 97 06/26/18 23:21 06/27/18 01:31 06/27/18 02:35 Temperature 98.7 F Pulse Rate 70 70 Respiratory Rate 16 16 Blood Pressure 133/73 Pulse Oximetry 95 06/27/18 04:00 06/27/18 08:00 06/27/18 09:33 Temperature 98.3 F 97.9 F Pulse Rate 77 76 Respiratory Rate 18 18 18 Blood Pressure 128/59 L 134/55 L Pulse Oximetry 97 92 L 06/27/18 12:00 Temperature 97.6 F Pulse Rate 66 Respiratory Rate 18 Blood Pressure 116/55 L Pulse Oximetry 91 L Intake & Output 06/26/18 06/27/18 06/27/18 18:59 06:59 18:59 Intake Total 1000 / 1000 Output Total 650 / 650 Balance -650 / -650 1000 / 1000 Weight 90.718 kg Intake: IV 1000 / 1000 NS Inj 1,000 ML @ 100 mls/hr IV 1000 / 1000 .CONT .Q10H [facility] Rx#:[id number] Output: Urine 650 / 650 Other: # Voids 1 Date of Last Bowel Movement 06/26/18 Narrative: GENERAL: The patient is awake, alert and oriented x3. The patient is no significant distress. PSYCHIATRIC: Normal affect, insight, and judgment. HEENT: Head is atraumatic. Oropharynx is moist. Extraocular muscles are intact. NECK: Non-tender and supple. LUNGS: No audible wheezing. He has normal inspiratory effort with no signs of dyspnea HEART: Regular rate and rhythm. ABDOMEN: Soft, nontender, and nondistended. BACK: No CVA tenderness. EXTREMITIES/SKIN/NEURO/VASCULAR: The right lower extremity is currently splinted. He has minimal swelling about the toes. There is no bloody drainage. He has normal sensation about the toes to light touch. There is brisk capillary refill. Examination of the bilateral upper extremities showed that the elbows do have good range of motion with no crepitus with no real tenderness along the bony prominences. The left lower extremity had no wounds with normal alignment of the knee and the ankle. Results - Labs Result Diagrams: 06/27/18 13:22 06/27/18 13:22 Labs: Laboratory Results - last 24 hr 06/26/18 06/26/18 06/26/18 20:52 20:52 20:52 CBC w Diff Auto diff final WBC 12.5 H RBC 5.11 Hgb 16.4 Hct 48.5 MCV 94.9 MCH 32.2 MCHC 33.9 RDW 13.5 Plt Count 311 MPV 9.4 Neut % (Auto) 57.1 Lymph % (Auto) 23.1 [place] % (Auto) 7.6 Eos % (Auto) 11.1 H Baso % (Auto) 1.1 Neut # (Auto) 7.2 Lymph # (Auto) 2.9 [place] # (Auto) 0.9 Eos # (Auto) 1.4 H Baso # (Auto) 0.1 WBC Differential . Differential Comment . PT 12.1 H INR 1.2 Sodium 137 Potassium 3.8 Chloride 102 Carbon Dioxide 25.4 Anion Gap 10 BUN 22 H Creatinine 2.20 H Estimated GFR 29 L Random Glucose 128 H Calcium 9.1 Total Bilirubin AST ALT Alkaline Phosphatase Total Creatine Kinase Total Protein Albumin Urine Color Urine Clarity Urine pH Ur Specific [place] Urine Protein Urine Glucose (UA) Urine Ketones Urine Occult Blood Urine Nitrate Urine Bilirubin Urine Urobilinogen Ur Leukocyte Esterase Urine WBC Ur Squamous Epith Cells Amorphous Sediment Hyaline Casts Urine Mucus Micro UA Comment Ur Microscopic Review Urine Culture Comments Serum Alcohol 06/26/18 06/26/18 06/27/18 20:52 23:34 09:25 CBC w Diff WBC RBC Hgb Hct MCV MCH MCHC RDW Plt Count MPV Neut % (Auto) Lymph % (Auto) [place] % (Auto) Eos % (Auto) Baso % (Auto) Neut # (Auto) Lymph # (Auto) [place] # (Auto) Eos # (Auto) Baso # (Auto) WBC Differential Differential Comment PT 12.1 H INR 1.2 Sodium Potassium Chloride Carbon Dioxide Anion Gap BUN Creatinine Estimated GFR Random Glucose Calcium Total Bilirubin AST ALT Alkaline Phosphatase Total Creatine Kinase Total Protein Albumin Urine Color Yellow Urine Clarity Clear Urine pH 5.5 Ur Specific [place] Less/equal 1.005 Urine Protein 30 H Urine Glucose (UA) Negative Urine Ketones Negative Urine Occult Blood Small H Urine Nitrate Negative Urine Bilirubin Negative Urine Urobilinogen 0.2 Ur Leukocyte Esterase Negative Urine WBC 0-5 Ur Squamous Epith Cells 0-5 Amorphous Sediment Few H Hyaline Casts 0-3 Urine Mucus Few H Micro UA Comment Culture not ind Ur Microscopic Review Microscopic reviewed Urine Culture Comments Culture not ind Serum Alcohol 78 H 06/27/18 06/27/18 06/27/18 13:22 13:22 13:22 CBC w Diff WBC 10.1 RBC 4.52 Hgb 14.8 Hct 42.8 MCV 94.7 MCH 32.7 MCHC 34.6 RDW 14.3 Plt Count 257 MPV 9.2 Neut % (Auto) 61.7 Lymph % (Auto) 16.0 [place] % (Auto) 8.9 H Eos % (Auto) 12.7 H Baso % (Auto) 0.7 Neut # (Auto) 6.2 Lymph # (Auto) 1.6 [place] # (Auto) 0.9 Eos # (Auto) 1.3 H Baso # (Auto) 0.1 WBC Differential . Differential Comment Auto diff final PT INR Sodium 142 Potassium 4.1 Chloride 110 H D Carbon Dioxide 24.8 Anion Gap 7 BUN 19 H Creatinine 1.61 H Estimated GFR 42 L Random Glucose 85 Calcium 8.4 L Total Bilirubin 1.7 H AST 31 ALT 30 Alkaline Phosphatase 68 Total Creatine Kinase 83 Cancelled Total Protein 6.8 Albumin 3.5 Urine Color Urine Clarity Urine pH Ur Specific [place] Urine Protein Urine Glucose (UA) Urine Ketones Urine Occult Blood Urine Nitrate Urine Bilirubin Urine Urobilinogen Ur Leukocyte Esterase Urine WBC Ur Squamous Epith Cells Amorphous Sediment Hyaline Casts Urine Mucus Micro UA Comment Ur Microscopic Review Urine Culture Comments Serum Alcohol - Diagnostic results Imaging: Impressions Ankle X-Ray 06/26/18 20:43 CONCLUSION: Acute mildly displaced fractures involving the distal fibula and posterior malleolus of the distal tibia. I have reviewed the images for this radiology study. I agree with the interpretation given by the radiologist. Chest X-Ray 06/26/18 20:43 CONCLUSION: 1. Mild cardiomegaly. 2. No focal infiltrate or pulmonary vascular congestion. Head CT 06/26/18 20:44 CONCLUSION: 1. Negative CT Head non contrast. . Assessment and Plan - Assessment and Plan 78-year-old man with history of DVT and hypertension typically on Coumadin. Left ankle fracture dislocation of the lateral malleolus and posterior malleolus. Based on the history that I obtained from the ER physician it sounds as if this ankle fracture is very unstable. We discussed that this is a serious condition effecting this patient's extremity. Nonoperative and operative options were discussed and reviewed. Potential consequences of both of these options were reviewed. Based on the x- ray patterns and the history from the ER physician I feel that nonoperative management has significant chance for failure with loss of reduction, chronic pain, significant chance for developing posttraumatic arthritis which ultimately could lead to significant dysfunction of the ankle and ambulation on a long-term basis which could be permanent. We discussed the option for surgical management for ORIF. We discussed that if the swelling is too great then we could consider external fixation. We discussed postoperative rehabilitation in detail. We discussed that postoperatively he would return back onto the Coumadin which he was on preoperatively. The patient would like to move forward with urgent surgical management for this condition. This is surgery should be considered non-elective, given that this patient presented emergently to the hospital, and the decision to proceed with surgery was derived from this presentation. Significantly delaying surgery ( other than for medical clearance) has the potential to adversly effect the outcome for this patient's extremity. Management of pain associated with surgery will likely require the use of parental controlled substances. The risks and benefits of surgical management have been discussed in detail. The risks of surgery include, but are not limited to, injury to nerves, blood vessels, bleeding, infection, non-healing; loss of range on motion, dysfunction or weakness of the associated joints; blood clots, pneumonia, stroke, heart attack, and . - Attending Attestation Attending Attestation: A mid level provider in my office, nurse practitioner or PA, may see this patient on a follow up basis and continue to implement the plan including: starting or adjusting medications, injections of muscle, tendons, bursa or joints, cast application, orthotic or brace application, physical therapy, further radiographic studies including X-ray, MRI, CT, ultrasound or bone scan , vascular studies, neurological studies, or other specialist consultations, and proceeding with surgical management as appropriate.
[2018-06-27] MEDS ORDERED: fentaNYL Citrate Inj 250 MCG/5 ML Ampul ONE (15:43)
[2018-06-27] MEDS ORDERED: ceFAZolin 2 GM Premix Inj 2 GM/50 ML PIGGYBACK IV.SIG ONE (16:02)
[2018-06-27] MEDS ORDERED: Bupivacaine/Epinephrine Inj 0.25% 50 ML Vial ONE (16:26)
[2018-06-27] MEDS ORDERED: Lidocaine PF 1% Inj 5 ML Syringe INFILTRATN ONE (16:30)
[2018-06-27] MEDS ORDERED: Bisacodyl 10 MG Supp RECTAL PRN (17:10)
[2018-06-27] MEDS ORDERED: Zolpidem Tartrate 5 MG Tablet PO PRN (17:10)
[2018-06-27] MEDS ORDERED: Post-op Orders (for Pharmacy) OTHER STA (17:10)
[2018-06-27] MEDS ORDERED: Aluminum/Magnesium/Simethacone Susp 30 ML UDC PO PRN (17:10)
--- NOTE | 2018-06-27 17:23 | P.OP ---
- Preoperative Diagnosis (1) Fracture dislocation of right ankle joint Comment: Right ankle lateral malleolus fracture with syndesmosis tear Postoperative Diagnosis: Same Date of procedure: 06/27/18 Procedure: Right ankle open reduction and internal fixation of lateral malleolus with open repair of syndesmosis Surgeon: Conrad Rios MD Certified Ski Patroller: JERRICA Orozco The surgical procedure was assisted by my Advanced Registered Nurse Practitioner. My ELECTRIC TRACK SWITCH MAINTAINER presence was necessary throughout this case for the manipulation and positioning of the surgical extremity. My ELECTRIC TRACK SWITCH MAINTAINER was assisting me throughout the duration of this procedure. The skill set of an Advance Registered Nurse Practitioner was medically necessary to complete this procedure. During the surgical case, the technologies division chair was working at the back table and the Advance Registered Nurse Practitioner was directly assisting me. Operation and Findings: Tourniquet time: 0 minutes at 250 mmHg of pressure Estimated blood loss: 15 cc The patient received intravenous Ancef and vancomycin. After the appropriate anesthesia was administered, the patient's leg was prepped and draped in the usual sterile fashion. We did not use a tourniquet during the procedure. The soft tissue swelling was mild to moderate with no wounds noted laterally. We made a standard incision over the lateral aspect of the ankle. We then dissected through the deep fascia down to the fracture site. The edges of the fracture were identified. Hematoma was evacuated and the fracture was irrigated. The fracture was anatomically reduced with a reduction clamp, verified both visually and via fluoroscopy. A 2.7 lag screw was placed from anterior to posterior obliquely in standard fashion with good fixation of the fracture site. We then applied a pre-contoured Synthes lateral malleolus plate over the fracture. We initially secured the plate using a non-locking screw in the oblong screw hole. This gave nice compression of the plate to the bone. We then secured the fracture with multiple distal and proximal locking screws. We visualized injury to the syndesmosis (distal tibial fibular ligament) and we also visualized instability in this area with maneuvering the plate. We took fluoroscopic imaging which showed instability of the syndesmosis with lateral subluxation even following the fixation of the fibula. Therefore, we decided to move forward with internal fixation of the syndesmosis. We anatomically reduce the syndesmosis and held it reduced with the ankle in neutral position. We then drilled for cortices through the fibula into the tibia and placed 3.5 cortical screw which had excellent purchase. We re-stress the mortise and this time we found that the syndesmosis was now anatomic and had no instability. We also visualized that there was no motion through the syndesmosis with the stress testing on visual inspection. We took final fluoroscopic imaging of the ankle, including an AP, lateral, and mortise view. The fracture and the mortise were anatomic. We found no intra- articular penetration of the screws. The patient had full range of motion of the ankle with no crepitus. No instability was noted. We irrigated the incision thoroughly. We then closed the deep fascia as much as possible with 2-0 Vicryl. Skin was closed with 2-0 Vicryl followed by 3-0 nylon. The leg was dressed and a splint was applied. The postoperative plan is for nonweightbearing to the extremity. This patient will require a planned, staged removal of the syndesmotic screw at approximately 3 months. 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 We have restarted his Coumadin with his first dose to start tonight. We may be able to start early to intermediate time range of motion depending on his clinical course.
[2018-06-27] MEDS ORDERED: Morphine Sulfate Inj 2 MG/ML Vial IV.PUSH PRN (17:30)
--- NOTE | 2018-06-27 18:07 | XR ---
EXAM DATE: 06/27/2018 6:02 PM EDT AGE/SEX: 78 years / Male INDICATIONS: Open reduction. CLINICAL DATA: This is the patient's subsequent encounter. Patient reports that signs and symptoms h ave been present for 2 days and indicates a pain score of Nonresponsive. MEDICAL/SURGICAL HISTORY: Non-responsive. Non-responsive. COMPARISON: [facility], ANKLE COMPLETE RIGHT MIN 3V, 06/26/2018. . FINDINGS: Fluoroscopic views of the postoperative right ankle demonstrate surgical plate and screws reversing t he distal fibular fracture and a syndesmotic screw. The ankle mortise appears symmetric. Good anatomi c alignment of the fracture fragments. Radiopaque foreign body identified within the posterior soft t issues. CONCLUSION: Status post ORIF of a distal fibular fracture and malleolus fracture with good anatomic alignment. Electronically signed by: Zenaida De Oliveira MD 06/27/2018 6:06 PM EDT
[2018-06-27] MEDS ORDERED: Senna/Docusate Sodium 8.6/50 MG Tablet PO SCH (21:00)
[2018-06-27] MEDS: Multivitamin/Minerals Therapeutic Tablet PO SCH (22:33)
[2018-06-28 06:44] LABS: Baso % (Auto) 0.3 % (0.0-2.0); Eos % (Auto) 0.1 % (0.0-4.0); Hemoglobin 14.1 gm/dL (13.0-17.0); Lymph # (Auto) 0.6 th/mm3 (1.0-4.8); Lymph % (Auto) 5.2 % (9.0-44.0); Mean Corpuscular HGB Conc 33.6 % (32.0-36.0); Mean Corpuscular Volume 95.4 fL (80.0-100.0); Mean Platelet Volume 9.6 fL (7.0-11.0); Mono # (Auto) 0.5 th/mm3 (0.0-0.9); Mono % (Auto) 4.6 % (0.0-8.0); Neut # (Auto) 9.7 th/mm3 (1.8-7.7); Neut % (Auto) 89.8 % (16.0-70.0); Platelet Count 240 th/mm3 (150-450); Red Cell Distribution Width 13.9 % (11.6-17.2); White Blood Count 10.8 th/mm3 (4.0-11.0)
[2018-06-28] MEDS: Sod Chloride 0.9% Inj 1,000 ML IV.CONT SCH ×2 (06:44→15:16)
[2018-06-28 06:53] LABS: INR 1.1 Ratio; Prothrombin Time 11.4 sec (9.8-11.6)
[2018-06-28 07:03] LABS: Calcium 8.1 mg/dL (8.5-10.1); Carbon Dioxide 24.8 meq/L (21.0-32.0); Potassium 4.8 meq/L (3.5-5.1)
[2018-06-28] MEDS ORDERED: Warfarin Consult Pharmacy OTHER PRN (08:08)
[2018-06-28] MEDS: Allopurinol 300 MG Tablet PO SCH (08:32)
[2018-06-28] MEDS: Senna/Docusate Sodium 8.6/50 MG Tablet PO SCH ×2 (08:32→21:54)
[2018-06-28] MEDS: Multivitamin/Minerals Therapeutic Tablet PO SCH ×2 (08:32→21:54)
--- NOTE | 2018-06-28 10:47 | P.PN ---
Subjective Interval history: Follow-up syncope. Patient doing well tolerated procedure. He has not been out of bed. No bowel movement denies nausea and abdominal pain. Physical Exam Vital signs: Vital Signs 06/27/18 12:00 06/27/18 13:38 06/27/18 15:15 Temperature 97.6 F 97.9 F Pulse Rate 66 88 Respiratory Rate 18 18 18 Blood Pressure 116/55 L 136/72 Pulse Oximetry 91 L 95 06/27/18 17:30 06/27/18 17:35 06/27/18 17:46 Temperature 97.5 F L Pulse Rate 127 H 93 H 75 Respiratory Rate 20 15 15 Blood Pressure 166/66 H 136/65 135/61 Pulse Oximetry 95 95 94 L 06/27/18 19:38 06/27/18 20:00 06/27/18 23:03 Temperature 98.4 F 97.4 F L Pulse Rate 86 97 H Respiratory Rate 18 18 18 Blood Pressure 140/62 127/61 Pulse Oximetry 93 L 92 L 06/28/18 03:54 06/28/18 08:00 Temperature 98.0 F 97.4 F L Pulse Rate 72 67 Respiratory Rate 18 18 Blood Pressure 127/65 125/61 Pulse Oximetry 94 L 94 L Intake & Output 06/27/18 06/28/18 06/28/18 18:59 06:59 18:59 Intake Total 1880 / 1880 3680 / 3680 Output Total 440 / 440 700 / 700 Balance 1440 / 1440 2980 / 2980 Weight 90.7 kg Intake: IV 1050 / 1050 3200 / 3200 LR 1000 mL Inj 1,000 ML @ 80 1000 / 1000 mls/hr IV.CONT .[id number] [facility] Rx# :[id number] NS Inj 1,000 ML @ 100 mls/hr IV 1000 / 1000 2000 / 2000 .CONT .Q10H [facility] Rx#:[id number] Ancef 2 GM Premix Inj 2 gm In 50 / 50 50 ml @ 0 mls/hr IV.SIG .STK- [facility] Rx#:[id number] Ancef Inj 1,000 MG In NS Inj 200 / 200 100 ML @ 200 mls/hr IV.SIG Q6H [facility] Rx#:[id number] Oral 30 / 30 480 / 480 Anesthesia Amount 800 / 800 Output: Urine 420 / 420 700 / 700 Estimated Blood Loss 20 / 20 Other: # Voids 2 Date of Last Bowel Movement 06/26/18 # Bowel Movements 0 Narrative: GENERAL: This is a pleasant, elderly male patient, SKIN: No rashes. Cool and dry. CARDIOVASCULAR: Regular rate and rhythm without murmurs, gallops, or rubs. RESPIRATORY: Breath sounds with diminished air exchange, but equal bilaterally. No wheezes, rales, or rhonchi. GASTROINTESTINAL: Abdomen soft, non-tender, nondistended. No guarding. MUSCULOSKELETAL: Extremities without clubbing, cyanosis. No calf tenderness. Right lower extremity in a cast NEUROLOGICAL: Awake and alert. Motor and sensory grossly within normal limits. Normal speech. Results - Labs CBC & Chem 7: 06/28/18 05:43 06/28/18 05:43 Laboratory Results - last 24 hr 06/27/18 06/27/18 06/27/18 13:22 13:22 13:22 WBC 10.1 RBC 4.52 Hgb 14.8 Hct 42.8 MCV 94.7 MCH 32.7 MCHC 34.6 RDW 14.3 Plt Count 257 MPV 9.2 Neut % (Auto) 61.7 Lymph % (Auto) 16.0 [place] % (Auto) 8.9 H Eos % (Auto) 12.7 H Baso % (Auto) 0.7 Neut # (Auto) 6.2 Lymph # (Auto) 1.6 [place] # (Auto) 0.9 Eos # (Auto) 1.3 H Baso # (Auto) 0.1 WBC Differential . Differential Comment Auto diff final PT INR Sodium 142 Potassium 4.1 Chloride 110 H D Carbon Dioxide 24.8 Anion Gap 7 BUN 19 H Creatinine 1.61 H Estimated GFR 42 L Random Glucose 85 Calcium 8.4 L Total Bilirubin 1.7 H AST 31 ALT 30 Alkaline Phosphatase 68 Total Creatine Kinase 83 Cancelled Total Protein 6.8 Albumin 3.5 TSH 06/28/18 06/28/18 06/28/18 05:43 05:43 05:43 WBC 10.8 RBC 4.40 L Hgb 14.1 Hct 42.0 MCV 95.4 MCH 32.0 MCHC 33.6 RDW 13.9 Plt Count 240 MPV 9.6 Neut % (Auto) 89.8 H Lymph % (Auto) 5.2 L [place] % (Auto) 4.6 Eos % (Auto) 0.1 Baso % (Auto) 0.3 Neut # (Auto) 9.7 H Lymph # (Auto) 0.6 L [place] # (Auto) 0.5 Eos # (Auto) 0.0 Baso # (Auto) 0.0 WBC Differential . Differential Comment Auto diff final PT 11.4 INR 1.1 Sodium 139 Potassium 4.8 Chloride 107 Carbon Dioxide 24.8 Anion Gap 7 BUN 18 Creatinine 1.46 H Estimated GFR 47 L Random Glucose 125 H Calcium 8.1 L Total Bilirubin AST ALT Alkaline Phosphatase Total Creatine Kinase 88 Total Protein Albumin TSH 06/28/18 05:43 WBC RBC Hgb Hct MCV MCH MCHC RDW Plt Count MPV Neut % (Auto) Lymph % (Auto) [place] % (Auto) Eos % (Auto) Baso % (Auto) Neut # (Auto) Lymph # (Auto) [place] # (Auto) Eos # (Auto) Baso # (Auto) WBC Differential Differential Comment PT INR Sodium Potassium Chloride Carbon Dioxide Anion Gap BUN Creatinine Estimated GFR Random Glucose Calcium Total Bilirubin AST ALT Alkaline Phosphatase Total Creatine Kinase Total Protein Albumin TSH 0.445 - Imaging Impressions Ankle X-Ray 06/27/18 00:00 CONCLUSION: Status post ORIF of a distal fibular fracture and malleolus fracture with good anatomic alignment. - Procedures ORIF right ankle Assessment and Plan - Plan Mr. Rodriguez is a pleasant 78-year-old male with a history of recently diagnosed hypertension, right lower extremity DVT, diverticulitis with subsequent bowel perforation requiring hemicolectomy, and hyperlipidemia who presented to the emergency room in [place] on 06/26/2018 following a syncopal episode resulting in collapse with ankle pain. X-rays of the ankle showed distal fibula and tibia fractures. The patient was also placed on cardiac telemetry and atrial flutter was discovered in this patient without any history of cardiac arrhythmias. The patient was transferred to [facility] under the hospitalist service for further evaluation and management. Distal fibula and tibia fractures, right ankle -Stable status post repair continue pain management counselled regarding narcotics. C Syncope -Suspect this was related to orthostatic hypotension as patient was just started on blood pressure medication earlier in the week and had been taking it for 3 days prior to syncope - patient also had a blood alcohol level of 78 which likely contributed -Hold blood pressure medication and monitor blood pressure readings -Unable to check orthostatics at this time given patient's severe right ankle pain -Unremarkable echocardiogram -Neurochecks and seizure precautions. Follow-up EEG -Currently nonfocal New-onset atrial flutter -Continuous cardiac telemetry to monitor for further arrhythmia/monitor rate -Consult cardiology - appreciate assistance -anticoagulation resumed (takes for DVT) cleared by orthopedic surgeon Acute on chronic renal failure stage III -BUN 22, creatinine 2.20, EGFR 29 -renal function worsened compared to prior labs -IV fluid hydration with normal saline at 100 cc/h -Repeat labs and follow trends and renal indices. Improving -Avoid nephrotoxins Regarding alcohol use -patient reports drinking 1 drink per day and up to 3 if he and his go out -Patient denies any history of alcohol withdrawal -Will add alcohol withdrawal assessment to orders without CIWA medications for now DVT prophylaxis -SVC filter -Continue anticoagulation Discharge Planning: Rehab vs HHC when cleared by orthopedic surgery
--- NOTE | 2018-06-28 11:06 | P.PNOP ---
Subjective Interval history: feeling ok, pain controlled Physical Exam Vital signs: Vital Signs 06/27/18 12:00 06/27/18 13:38 06/27/18 15:15 Temperature 97.6 F 97.9 F Pulse Rate 66 88 Respiratory Rate 18 18 18 Blood Pressure 116/55 L 136/72 Pulse Oximetry 91 L 95 06/27/18 17:30 06/27/18 17:35 06/27/18 17:46 Temperature 97.5 F L Pulse Rate 127 H 93 H 75 Respiratory Rate 20 15 15 Blood Pressure 166/66 H 136/65 135/61 Pulse Oximetry 95 95 94 L 06/27/18 19:38 06/27/18 20:00 06/27/18 23:03 Temperature 98.4 F 97.4 F L Pulse Rate 86 97 H Respiratory Rate 18 18 18 Blood Pressure 140/62 127/61 Pulse Oximetry 93 L 92 L 06/28/18 03:54 06/28/18 08:00 Temperature 98.0 F 97.4 F L Pulse Rate 72 67 Respiratory Rate 18 18 Blood Pressure 127/65 125/61 Pulse Oximetry 94 L 94 L Intake & Output 06/27/18 06/28/18 06/28/18 18:59 06:59 18:59 Intake Total 1880 / 1880 3680 / 3680 Output Total 440 / 440 700 / 700 Balance 1440 / 1440 2980 / 2980 Weight 90.7 kg Intake: IV 1050 / 1050 3200 / 3200 LR 1000 mL Inj 1,000 ML @ 80 1000 / 1000 mls/hr IV.CONT .[id number] [facility] Rx# :[id number] NS Inj 1,000 ML @ 100 mls/hr IV 1000 / 1000 2000 / 2000 .CONT .Q10H [facility] Rx#:[id number] Ancef 2 GM Premix Inj 2 gm In 50 / 50 50 ml @ 0 mls/hr IV.SIG .STK- [facility] Rx#:[id number] Ancef Inj 1,000 MG In NS Inj 200 / 200 100 ML @ 200 mls/hr IV.SIG Q6H [facility] Rx#:[id number] Oral 30 / 30 480 / 480 Anesthesia Amount 800 / 800 Output: Urine 420 / 420 700 / 700 Estimated Blood Loss 20 / 20 Other: # Voids 2 Date of Last Bowel Movement 06/26/18 # Bowel Movements 0 Narrative: R LE splinted, SILT, no swelling. comfortable. Results - Labs CBC & Chem 7: 06/28/18 05:43 06/28/18 05:43 Laboratory Results - last 24 hr 06/27/18 06/27/18 06/27/18 13:22 13:22 13:22 WBC 10.1 RBC 4.52 Hgb 14.8 Hct 42.8 MCV 94.7 MCH 32.7 MCHC 34.6 RDW 14.3 Plt Count 257 MPV 9.2 Neut % (Auto) 61.7 Lymph % (Auto) 16.0 [place] % (Auto) 8.9 H Eos % (Auto) 12.7 H Baso % (Auto) 0.7 Neut # (Auto) 6.2 Lymph # (Auto) 1.6 [place] # (Auto) 0.9 Eos # (Auto) 1.3 H Baso # (Auto) 0.1 WBC Differential . Differential Comment Auto diff final PT INR Sodium 142 Potassium 4.1 Chloride 110 H D Carbon Dioxide 24.8 Anion Gap 7 BUN 19 H Creatinine 1.61 H Estimated GFR 42 L Random Glucose 85 Calcium 8.4 L Total Bilirubin 1.7 H AST 31 ALT 30 Alkaline Phosphatase 68 Total Creatine Kinase 83 Cancelled Total Protein 6.8 Albumin 3.5 TSH 06/28/18 06/28/18 06/28/18 05:43 05:43 05:43 WBC 10.8 RBC 4.40 L Hgb 14.1 Hct 42.0 MCV 95.4 MCH 32.0 MCHC 33.6 RDW 13.9 Plt Count 240 MPV 9.6 Neut % (Auto) 89.8 H Lymph % (Auto) 5.2 L [place] % (Auto) 4.6 Eos % (Auto) 0.1 Baso % (Auto) 0.3 Neut # (Auto) 9.7 H Lymph # (Auto) 0.6 L [place] # (Auto) 0.5 Eos # (Auto) 0.0 Baso # (Auto) 0.0 WBC Differential . Differential Comment Auto diff final PT 11.4 INR 1.1 Sodium 139 Potassium 4.8 Chloride 107 Carbon Dioxide 24.8 Anion Gap 7 BUN 18 Creatinine 1.46 H Estimated GFR 47 L Random Glucose 125 H Calcium 8.1 L Total Bilirubin AST ALT Alkaline Phosphatase Total Creatine Kinase 88 Total Protein Albumin [facility] 06/28/18 05:43 WBC RBC Hgb Hct MCV MCH MCHC RDW Plt Count MPV Neut % (Auto) Lymph % (Auto) [place] % (Auto) Eos % (Auto) Baso % (Auto) Neut # (Auto) Lymph # (Auto) [place] # (Auto) Eos # (Auto) Baso # (Auto) WBC Differential Differential Comment PT INR Sodium Potassium Chloride Carbon Dioxide Anion Gap BUN Creatinine Estimated GFR Random Glucose Calcium Total Bilirubin AST ALT Alkaline Phosphatase Total Creatine Kinase Total Protein Albumin TSH 0.445 - Imaging Impressions Ankle X-Ray 06/27/18 00:00 CONCLUSION: Status post ORIF of a distal fibular fracture and malleolus fracture with good anatomic alignment. - Procedures ORIF right ankle Assessment and Plan - Assessment and Plan POD # 1: s/p R ankle ORIF NWB for 3 months coumadin has been adjusted to correct outpt dose (4mg daily) Patient can have PMD manage the coumadin after d/c Ok for d/c when cleared by PMD and PT.
--- NOTE | 2018-06-28 12:41 | ECG ---
Date Performed: 06/26/2018 Time Performed: 21:21:03 PTAGE: 78 years EKG: ATRIAL FLUTTER/TACHYCARDIA MARKED LEFT AXIS DEVIATION MODERATE ST DEPRESSION ABNORMAL ECG C ompared to PREVIOUS TRACING atrial flutter now present PREVIOUS TRACIN12/13/2010 05.20 DOCTOR: Shyam Quesada Interpretating Date/Time 06/28/2018 12:38:43
--- NOTE | 2018-06-28 15:49 | P.DCO ---
- Physical Therapy Order: Evaluate and treat, Improve ambulation, Strength and gait training - Home Health Nursing Order: Medical education, Medication education-adverse effect, Nursing assessment with vital signs - Certification I have seen patient Tez Rodriguez on 06/28/18. My clinical findings support the need for the requested home health care services because: Deconditioned with increased weakness I certify that my clinical findings support that this patient is homebound because: Unsteady gait/balance, Need for psychosocial assistance
--- NOTE | 2018-06-28 17:12 | MG ---
cc: Kelsea Ortiz MD EEG NUMBER; [id number] REFERRING PHYSICIAN: Raz Sandy MD INDICATIONS: In room 1611 awake, drowsy with photic stimulation. Alert and oriented. CT is negative. Admitted with syncope, mild headache, history of right upper extremity deep venous thrombosis, has IVC filter. Smoker, hyperlipidemia. On Zyloprim, Lipitor, morphine, [place]. Looks good. DESCRIPTION OF RECORD: The patient exhibits a background rhythm of 8-1/2 to 9 Hz, 20-40 microvolts. Symmetrical background. Some questionable dysrhythmia seen on the EKG. Photic stimulation does elicit the posterior driving response. No epileptiform features. IMPRESSION: Overall, normal appearing electroencephalogram. No epileptiform features in this one recording. Clinical correlation. Kelsea Ortiz MD DF/luba , 04:31 PM , 04:36 PM
[2018-06-29] MEDS: Sod Chloride 0.9% Inj 1,000 ML IV.CONT SCH (01:00)
[2018-06-29 07:12] LABS: INR 1.1 Ratio; Prothrombin Time 11.5 sec (9.8-11.6)
[2018-06-29] MEDS: Senna/Docusate Sodium 8.6/50 MG Tablet PO SCH (08:41)
[2018-06-29] MEDS: Allopurinol 300 MG Tablet PO SCH (08:41)
[2018-06-29] MEDS: Multivitamin/Minerals Therapeutic Tablet PO SCH (08:41)
--- NOTE | 2018-06-29 10:06 | P.DS ---
Date of admission: 06/26/18 23:02 Primary care physician: Toribio Farias MD Brief History from admission: Mr. Rodriguez is a pleasant 78-year-old male with a history of recently diagnosed hypertension, right lower extremity DVT, diverticulitis with subsequent bowel perforation requiring hemicolectomy, and hyperlipidemia who presented to the emergency room in [place] on 06/26/2018 following a syncopal episode resulting in collapse with ankle pain. X-rays of the ankle showed distal fibula and tibia fractures. The patient was also placed on cardiac telemetry and atrial flutter was discovered in this patient without any history of cardiac arrhythmias. The patient was transferred to [facility] under the hospitalist service for further evaluation and management. The patient is seen in his hospital room. He reports having been started on antihypertensive medicine by an MULTIPLE RES[employer] OPERATOR at Dr. Farias's office for elevated blood pressure. The medication is a combination of amlodipine and benazepril. The patient has taken this medication for the past 3 days. He reports his blood pressure was improving. Then, last night, he got up from bed to take his Coumadin. He was standing at a dresser with his feet underneath an opening under the dresser when he collapsed backwards hitting his head on the ground. The last thing he remembers is standing at the dresser trying to take his Coumadin. He denies any symptoms prior to the syncopal episode: Denies chest pain, shortness of breath, palpitations, blurry vision, unilateral weakness, or headache. He indicates that his right foot got caught under the opening of the dresser and remained in place while he fell backwards. He suffered from severe right ankle pain when he awakened from fall. He reports the pain has not been relieved with morphine 2 mg IV here at the hospital and is complaining of 10 out of 10 pain at the time of my visit. He denies any prior history of cardiac problems and states he has never been told he has a cardiac arrhythmia. 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 DS: Diagnosis - Discharge Diagnosis (1) Atrial flutter Status: Acute (2) Fracture dislocation of right ankle joint Status: Acute DS: Medications - Discharge Medications Prescriptions: hydrocodone-acetaminophen [Dequincy] 1 - 2 tab PO Q4-6H #50 tab DS: Summary Hospital Course: Mr. Rodriguez is a pleasant 78-year-old male with a history of recently diagnosed hypertension, right lower extremity DVT, diverticulitis with subsequent bowel perforation requiring hemicolectomy, and hyperlipidemia who presented to the emergency room in [place] on 06/26/2018 following a syncopal episode resulting in collapse with ankle pain. X-rays of the ankle showed distal fibula and tibia fractures. The patient was also placed on cardiac telemetry and atrial flutter was discovered in this patient without any history of cardiac arrhythmias. The patient was transferred to [facility] under the hospitalist service for further evaluation and management. Distal fibula and tibia fractures, right ankle -Stable status post repair continue pain management counselled regarding narcotics. Syncope -Suspect this was related to orthostatic hypotension as patient was just started on blood pressure medication earlier in the week and had been taking it for 3 days prior to syncope - patient also had a blood alcohol level of 78 which likely contributed -Hold blood pressure medication and monitor blood pressure readings. Home health care visiting nurse requested -Unable to check orthostatics at this time given patient's severe right ankle pain -Unremarkable echocardiogram -Neurochecks and seizure precautions. Negative EEG -Currently nonfocal New-onset atrial flutter -Continuous cardiac telemetry to monitor for further arrhythmia/monitor rate -Consult cardiology - appreciate assistance. Echocardiogram unremarkable -anticoagulation resumed (takes for DVT) cleared by orthopedic surgeon Acute on chronic renal failure stage III -BUN 22, creatinine 2.20, EGFR 29 -renal function worsened compared to prior labs -IV fluid hydration with normal saline at 100 cc/h -Repeat labs and follow trends and renal indices. Improving -Avoid nephrotoxins Regarding alcohol use -patient reports drinking 1 drink per day and up to 3 if he and his go out -Patient denies any history of alcohol withdrawal -Will add alcohol withdrawal assessment to orders without CIWA medications for now DVT prophylaxis -SVC filter -Continue anticoagulation - Time Spent with Patient Total time spent providing and/or coordinating discharge services: Greater than 30 minutes - Quality: VTE Deep Vein Thrombosis/Pulmonary Embolism Present on Admission: No Exam Vital signs: Vital Signs 06/28/18 12:00 06/28/18 15:38 06/28/18 16:00 Temperature 98.4 F 97.8 F Pulse Rate 73 73 Respiratory Rate 18 18 18 Blood Pressure 113/58 L 124/60 Pulse Oximetry 94 L 95 06/28/18 19:40 06/28/18 19:55 06/28/18 23:14 Temperature 97.6 F 98.3 F Pulse Rate 83 71 66 Respiratory Rate 18 18 Blood Pressure 137/63 147/69 H Pulse Oximetry 96 95 06/29/18 00:00 06/29/18 03:02 Temperature 97.3 F L Pulse Rate 64 71 Respiratory Rate 18 Blood Pressure 139/41 L Pulse Oximetry 96 Intake & Output 06/28/18 06/29/18 06/29/18 18:59 06:59 18:59 Intake Total 1700 / 1700 480 / 480 1000 / 1000 Output Total 800 / 800 Balance 900 / 900 480 / 480 1000 / 1000 Weight 90.7 kg Intake: IV 1100 / 1100 1000 / 1000 LR 1000 mL Inj 1,000 ML @ 80 1000 / 1000 mls/hr IV.CONT .[id number] NANI Rx# :[id number] NS Inj 1,000 ML @ 100 mls/hr IV 1000 / 1000 .CONT .Q10H NANI Rx#:[id number] Ancef Inj 1,000 MG In NS Inj 100 / 100 100 ML @ 200 mls/hr IV.SIG Q6H NANI Rx#:[id number] Oral 600 / 600 480 / 480 Output: Urine 800 / 800 Other: # Voids 4 Date of Last Bowel Movement 06/26/18 # Bowel Movements 0 Narrative: GENERAL: This is a pleasant, elderly male patient, SKIN: No rashes. Cool and dry. CARDIOVASCULAR: Regular rate and rhythm without murmurs, gallops, or rubs. RESPIRATORY: Breath sounds with diminished air exchange, but equal bilaterally. No wheezes, rales, or rhonchi. GASTROINTESTINAL: Abdomen soft, non-tender, nondistended. No guarding. MUSCULOSKELETAL: Extremities without clubbing, cyanosis. No calf tenderness. Right lower extremity in a cast NEUROLOGICAL: Awake and alert. Motor and sensory grossly within normal limits. Normal speech. Results Procedures completed during hospitalization: ORIF right ankle Labs on day of discharge: Labs from last 24 hours 06/29/18 05:07 PT 11.5 INR 1.1 - Impressions ITS Impressions Chest X-Ray 06/26/18 20:43 CONCLUSION: 1. Mild cardiomegaly. 2. No focal infiltrate or pulmonary vascular congestion. Head CT 06/26/18 20:44 CONCLUSION: 1. Negative CT Head non contrast. . Ankle X-Ray 06/27/18 00:00 CONCLUSION: Status post ORIF of a distal fibular fracture and malleolus fracture with good anatomic alignment. Discharge Plan - Discharge Disposition Patient Disposition: /Home Health Service - Discharge Condition Condition: Stable - Discharge Order Discharge Orders: Discharge Order (Routine); Ordered 06/28/18 Ordered By: Raz Sandy - Physicians Team Primary Care Provider: Toribio Farias Attending Provider: Raz Sandy Other Providers: Conrad Rios MD ; Javier Kimbrough MD ; Sharda Robin
== END 2018-06-29 12:14 | disposition home health service (06) ==
LOC: PHED 20:29 → PHEDA 23:02 → N06 06-27 03:46
PROVIDERS: ADMIT Internal Medicine; ATTEND Internal Medicine
PROC: ORIFANK (2018-06-27 15:54)